=== PATIENT | female | born 1945 | race Caucasian/White ===

== ENCOUNTER 2017-12-25 15:53 | Emergency (ER) | payer OTHER ==
[~2017-12-25] VITALS: Ht 149.9 cm; Wt 83.5 kg
--- NOTE | ~2017-12-25 | EKG ---
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 12/26/17 0811 1722 1722 Jose R Christie MD, FAC /EPI
[~2017-12-25 15:53] MED LIST: BENZONATATE; OXYBUTYNIN; TUSSIONEX PENN473 ML PO; ZPAK PO
[2017-12-25] MEDS ORDERED: DICLOFENAC SODI75 MG PO (16:03)
[2017-12-25] MEDS ORDERED: ZPAK PO (17:55)
[2017-12-25] MEDS ORDERED: TESSALON PERLE100 MG PO (17:57)
== END 2017-12-25 18:14 | disposition home or self-care (01) ==
LOC: ER 15:53
DX: J98.8 Other specified respiratory disorders (principal)

== ENCOUNTER 2018-09-08 17:19 | Inpatient (IN) | payer OTHER ==
[~2018-09-08] VITALS: Ht 149.9 cm; Wt 80.7 kg
--- NOTE | ~2018-09-08 | EKG ---
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
--- NOTE | ~2018-09-08 | EEG ---
[facility] [place] [address] ELECTROENCEPHALOGRAM Name: KASANDRA WALTERS Room #: 458-P [facility] IN M.R.#: [id number] Admission: 09/08/18 Attend Phys: Prabhjot Crooks MD Discharge: Date of : 41 Report #: [id number] THIS REPORT FOR: //name// CC: FAM physician/PCP Prabhjot Crooks DATE OF SERVICE: 09/09/2018 This patient is being evaluated for an episode of syncope. EEG was done by placing the electrode by standard 10-20 system of electrode placement. Both referential and sequential montages were used for recording. Background activity in this patient's EEG is about 10 Hz and 40 microvolt. The patient became drowsy that is associated with bilateral slowing and vertex sharp waves. Photic stimulation was unremarkable. Throughout the record, no active epileptiform activity was noticed. IMPRESSION: This patient's EEG is unremarkable. Thank you very much for this referral. By: 1751 1818 Ozzy Leahy MD /nt
--- NOTE | ~2018-09-08 | 2DMMODE ---
[facility] [address] [place] [address] 2 D/M-MODE ECHOCARDIOGRAM Name: KASANDRA WALTERS Room #: 458-P [facility] IN ..#: [id number] Admission: 09/08/18 Attend Phys: Prabhjot Crooks MD Discharge: Date of : 41 Date of Service: 09/09/18 1405 Report #: [id number] THIS REPORT FOR: //name// APPROVED REPORT Study performed: 09/09/2018 13:12:13 EXAM: Comprehensive 2D, Doppler, and color-flow Echocardiogram Patient Location: Bedside Room #: 458 Status: routine BSA: 1.75 HR: 71 bpm BP: 146/74 mmHg Rhythm: NSR Other Information Study Quality: Adequate Indications Syncope, HTN 2D Dimensions RVDd: 26.48 mm IVSd: 11.00 (7-11mm) LVOT Diam: 19.58 (18-24mm) LVDd: 43.59 mm PWd: 11.00 (7-11mm) LVDs: 31.46 (25-40mm) Aortic Root: 33.83 mm Volumes Left Atrial Volume (Systole) Single Plane 4CH: 30.35 mL Single Plane 2CH: 43.94 mL LA ESV Index: 24.00 mL/m2 Aortic Valve AoV Peak Yaya.: 1.36 m/s AO Peak Gr.: 7.36 mmHg LVOT Max P.57 mmHg LVOT Max V: 1.07 m/s JASON Vmax: 2.37 cm2 Mitral Valve E/A Ratio: 0.5 MV Decel. Time: 369.43 ms MV E Max Yaya.: 0.41 m/s [facility] [address] [place] [address] 2 D/M-MODE ECHOCARDIOGRAM Name: KASANDRA WALTERS Room #: 458-P [facility] IN [facility]#: [id number] Admission: 09/08/18 Attend Phys: Prabhjot Crooks MD Discharge: Date of : 41 Date of Service: 09/09/18 1405 Report #: [id number] MV A Yaya.: 0.84 m/s MV PHT: 107.13 ms IVRT: 69.20 ms Pulmonary Valve PV Peak Yaya.: 0.83 m/s PV Peak Gr.: 2.73 mmHg Pulmonary Vein P Vein S: 0.57 m/s P Vein D: 0.29 m/s P Vein S/D Ratio: 1.97 Tricuspid Valve TR Peak Yaya.: 2.12 m/s RAP Estimate: 5.00 mmHg TR Peak Gr.: 17.92 mmHg PA Pressure: 23.00 mmHg Left Ventricle The left ventricle is normal size. There is normal LV segmental wall motion. Borderline concentric left ventricular hypertrophy. Left ventricular systolic function is normal. LVEF is 55-60%. Mild diastolic dysfunction is present (impaired relaxation pattern). Right Ventricle The right ventricle is normal size. The right ventricular systolic function is normal. Atria The left atrium size is normal. The right atrium size is normal. Aortic Valve Aortic valve leaflets are mildly thickened. No aortic regurgitation is present. There is no aortic valvular stenosis. Mitral Valve Mitral valve leaflets are mildly thickened. Mild mitral annular calcification. Trace mitral regurgitation. Tricuspid Valve The tricuspid valve is normal in structure. Trace tricuspid regurgitation. Estimated PAP is 20-25mmHg. Pulmonic Valve Pulmonic valve is not well visualized. Trace pulmonic [facility] [address] [place] [address] 2 D/M-MODE ECHOCARDIOGRAM Name: KASANDRA WALTERS Room #: 458-P [facility] IN .R.#: [id number] Admission: 09/08/18 Attend Phys: Prabhjot Crooks MD Discharge: Date of : 41 Date of Service: 09/09/18 1405 Report #: [id number] regurgitation. Great Vessels The aortic root is normal in size. Ascending aorta is not well visualized. IVC is normal in size and collapses >50% with inspiration. Pericardium There is no pericardial effusion. <Conclusion> The left ventricle is normal size. Borderline concentric left ventricular hypertrophy. Left ventricular systolic function is normal. Mild diastolic dysfunction is present (impaired relaxation pattern). The right ventricle is normal size. The left atrium size is normal. Aortic valve leaflets are mildly thickened. There is no aortic valvular stenosis. Mitral valve leaflets are mildly thickened. Mild mitral annular calcification. Trace mitral regurgitation. Trace tricuspid regurgitation. Estimated PAP is 20-25mmHg. <ELECTRONICALLY SIGNED> By: Stephon Bah MD 09/09/18 1405 04 140 Stephon Bah MD /INF
--- NOTE | ~2018-09-08 | HC ---
[facility] [place] [address] CONSULTATION Name: KASANDRA WALTERS Room #: 458- ADM IN M.R.#: [id number] Admission: 09/08/18 Attend Phys: Prabhjot Crooks MD Discharge: Date of : 41 Report #: [id number] THIS REPORT FOR: //name// CC: MÓNICA physician/PCP Prabhjot Crooks DATE OF SERVICE: 09/09/2018 HISTORY OF PRESENT ILLNESS: This is a 72-year-old female patient who was evaluated by me for an episode, which has been summarized in H and P, which was reviewed. It looks like this patient has been under a lot of stress. She had an episode where she could not talk and she thinks she could have passed out. She thinks when the EMS came, the blood pressure may have been low, but she is not sure about that. She has not eaten anything. She had a similar episode about 6 months ago. She did not get any evaluation at that time. She said she has not eaten anything, but there is no hypoglycemia either. She does not know what brought this episode on. REVIEW OF SYSTEMS: Indicate that sometime she gets extremely hot. She walks with a cane. She said the bone in her left knee is crushed. She does have this episode of speech difficulty. She does not think she has started any new medication. She is on chronic pain medications like tramadol. She denies any prior episode of TIA. She does indicate that she has a history of anxiety. She denies any new eye, ENT, cardiac, respiratory, GI, , musculoskeletal, constitutional, dermatological, hematological, psychiatric, throat, allergic symptom associated with present symptomatology except as described above. PAST MEDICAL HISTORY: Positive for this kind of syncope about 6 months ago. FAMILY HISTORY: Negative for any early age stroke. SOCIAL HISTORY: She denies the use of tobacco and drinks alcohol very rarely. PHYSICAL EXAMINATION: Indicate the patient is alert, responsive. She can tell me what month it is. She can tell me the date approximately. Her speech, concentration, fund of knowledge and memory is at her baseline. Cranial nerve examination 2-12 looks mostly unremarkable. She does have some problem with the left knee, so neuromuscular examination is difficult because I do not know what her baseline is, but her reflexes appeared to be present. Her position sense is intact. Her tone looks symmetrical. There is no cerebellar sign. I could not have a very good look at the fundus because she could not cooperate. She is reasonably well-developed individual who does not have any dysmorphic features of eyes, ears and face. Her visions and hearing looks adequate. Her blood pressure is 146/74, respiration is 18, pulse is 69, temperature is 98. Her [facility] [address] [place] [address] CONSULTATION Name: KASANDRA WALTERS Room #: 458-P [facility] IN M.R.#: [id number] Admission: 09/08/18 Attend Phys: Prabhjot Crooks MD Discharge: Date of : 41 Report #: [id number] cardiac examinations appear unremarkable. No respiratory difficulty or rhonchi on either side. LABORATORY DATA: Indicate a normal white count and normal sodium. For some reason, her calcium is trace high at 10.3. Her LDL is 116. She did have an MRI of the brain, which shows significant atrophy with some white matter ischemic changes. IMPRESSION: It is unlikely that there is any neurological etiology for this patient's symptoms, but she presented with an episode which can potentially be transient ischemic attack or seizures and we will exclude that possibility. 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 She is already on aspirin, which I will suggest we continue. I think she should also be on statin. We will check a TSH and vitamin B12. She also is under a lot of stress and I think that should also be addressed in this patient. She is on tramadol, which is potentially epileptiform medication and I think that should be discontinued. RECOMMENDATIONS: 1. Aspirin. 2. I will suggest statin. 3. I will check the rest of the workup for potential TIA, like echocardiogram, carotid Doppler. 4. I will get an EEG done. 5. I will suggest discontinue her tramadol and if pain management is needed, she might be tried on gabapentin in stat. I discussed all of it with the patient in detail and she wants to follow this plan and we will do that and follow up tomorrow after the above testing is done. Thank you very much for this referral and if you have any question, please feel free to contact me. By: 1022 2217 Ozzy Leahy MD /daniel
[~2018-09-08 17:19] MED LIST changes: +DICLOFENAC SODI75 MG PO; +TESSALON PERLE100 MG PO
[2018-09-08 17:24] VITALS: BP 140/76
[2018-09-08] MEDS ORDERED: COZAAR 25 MG TA25 M1 PO (17:30)
[2018-09-08] MEDS ORDERED: TRAMADOL 50 MG50 MG PO (17:30)
[2018-09-08] MEDS ORDERED: OXYBUTYNIN 5 MG5 M2 PO (17:30)
[2018-09-08 17:56] LABS: URINE BILIRUBIN NEGATIVE (Negative); URINE BLOOD NEGATIVE (Negative); URINE CLARITY CLEAR; URINE COLOR YELLOW; URINE GLUCOSE-RANDOM* NEGATIVE (Negative); URINE KETONES NEGATIVE (Negative); URINE LEUKOCYTES NEGATIVE (Negative); URINE NITRITE NEGATIVE (Negative); URINE PROTEIN (DIPSTICK) NEGATIVE (Negative); URINE SPECIFIC GRAVITY 1.025 (1.005-1.035); URINE UROBILINOGEN 0.2 E.U./dl (0.2-1.0)
[2018-09-08 18:06] LABS: ABSOLUTE NEUTROPHILS 4.9 thou/uL (1.4-8.2); BASOPHILS 1.1 % (0.0-2.0); EOSINOPHILS 1.2 % (0.0-3.0); HEMOGLOBIN 14.8 gm/dL (12.0-15.0); LYMPHOCYTES 46.3 % (24.0-44.0); MCH 29.1 pg (26.0-34.0); MCHC 34.3 g/dL (28.0-37.0); MCV 84.9 fL (80.0-100.0); MONOCYTES 6.7 % (1.0-8.0); PLATELET COUNT 350 thou/uL (150-400); POLYS 44.7 % (36.0-66.0); RBC 5.06 mil/uL (4.20-5.00); RDW 13.2 % (10.5-14.5); WBC 10.9 thou/uL (4.0-11.0)
[2018-09-08 18:20] LABS: ANION GAP 10 mmol/L (7-16); BUN 29 mg/dL (7-18); CALCIUM 10.3 mg/dL (8.5-10.1); CHLORIDE 104 mmol/L (98-107); CO2 24 mmol/L (21-32); GLUCOSE 99 mg/dL (74-106); POTASSIUM 4.2 mmol/L (3.5-5.1); SODIUM 138 mmol/L (136-145)
[2018-09-08 18:26] LABS: ALBUMIN 3.5 g/dL (3.4-5.0); SGOT 15 U/L (15-37); SGPT 19 U/L (30-65); TOTAL BILIRUBIN 0.3 mg/dL (<0.1-1.0); TOTAL PROTEIN 7.5 g/dL (6.4-8.2); TROPONIN-I <0.06 ng/mL (<0.06)
[2018-09-08 20:04] VITALS: BP 136/56
[2018-09-08 21:09] VITALS: BP 163/93
[2018-09-08 21:30] VITALS: BP 140/55
[2018-09-09 05:51] LABS: CHOLESTEROL 188 mg/dL (<200); HDL CHOLESTEROL 46 mg/dL (>40); LDL CHOLESTEROL 116 mg/dL (<100); SERUM ASSESSMENT Clear; TC:HDL 4.1 Ratio (Not establshd); TRIGLYCERIDE 134 mg/dL (<150); VLDL 27 mg/dL (<40)
[2018-09-09 07:05] VITALS: BP 146/74
[2018-09-09 11:21] LABS: TSH 2.66 uIU/mL (0.358-3.740)
[2018-09-09 13:25] VITALS: BP 187/86
[2018-09-09 19:24] VITALS: BP 151/53
[2018-09-09 20:08] LABS: GLYCOHEMOGLOBIN (HGB A1C) 5.5 % (4.8-5.6)
[2018-09-10 03:46] VITALS: BP 164/86
[2018-09-10 08:10] VITALS: BP 184/87
[2018-09-10 10:00] VITALS: BP 155/87
[2018-09-10 10:02] VITALS: BP 148/85
[2018-09-10 10:04] VITALS: BP 142/83
[2018-09-10] MEDS ORDERED: B-12500 MCG PO (14:23)
[2018-09-10] MEDS ORDERED: ACETAMINOPHEN325 M1 PO (14:23)
[2018-09-10] MEDS ORDERED: ASPIRIN325 PO (14:23)
[2018-09-10 14:55] VITALS: BP 142/83
== END 2018-09-10 18:22 | disposition home health service (06) | DRG 312 ==
LOC: ER 17:19 → 4W 19:25 → EROBS 19:25 → 4W 21:10
PROVIDERS: Nurse Practitioner Acute Care; Physician Assistant; Psychiatry & Neurology Neuromuscular Medicine
DX: R55 Syncope and collapse (principal); M81.0 Age-related osteoporosis without current pathological fracture; I10 Essential (primary) hypertension; F41.9 Anxiety disorder, unspecified; E86.9 Volume depletion, unspecified; R79.89 Other specified abnormal findings of blood chemistry; E53.8 Deficiency of other specified B group vitamins; M19.90 Unspecified osteoarthritis, unspecified site; G31.84 Mild cognitive impairment of uncertain or unknown etiology; N32.81 Overactive bladder; M62.84 Sarcopenia; Z79.899 Other long term (current) drug therapy; Z82.49 Family history of ischemic heart disease and other diseases of the circulatory system
CPT/HCPCS: 10045